=== PATIENT | female | born 1980 | race Caucasian/White ===

== ENCOUNTER 2017-12-06 21:08 | Emergency (ER) | payer OTHER ==
[2017-12-06 22:27] LABS: Appearance CLEAR (CLEAR); Bilirubin NEGATIVE (NEGATIVE); Blood NEGATIVE Ery/ul (0-5); Glucose NEGATIVE (NEGATIVE); Ketones NEGATIVE (NEGATIVE); Leukocyte Esterase NEGATIVE (NEGATIVE); Nitrite NEGATIVE (NEGATIVE); Protein,Urine Dip NEGATIVE (Negative); Specific Gravity 1.005 (1.005-1.025); Urobilinogen NORMAL mg/dL (0-1)
--- NOTE | 2017-12-06 22:36 | ERPHSYRPT ---
- History of Present Illness Time Seen by Provider: 12/06/17 22:18 Source: patient Exam Limitations: no limitations Patient Subjective Stated Complaint: Pt arrives to ER with c/o dizziness came on all of a sudden woke up with it this morning. Gait is unsteady. Nausea started a couple hours ago. Pt denies vomiting, diarrhea, constipation, fever or any other sx. Pt had benign brain tumor at 20 that was partially removed in 2001 and diagnosed with its return August of last year. Pt believes sx today are related to return of brain tumor. Denies headache but states "head feels funny". Triage Nursing Assessment: see above Physician History: The patient is a 36-year-old female with her complaining of a sudden onset of "dizziness" this morning when she got up from bed. She feels unsteady on her feet. She states this is exactly how she has felt when she had her brain tumor when she was 20 years old. She had a partial resection of it in 2001 and was diagnosed in [facility] that the tumor had grown. She states it feels like she has a dizziness in her brain. She's been slightly nauseated today but no vomiting. She denies fever or chills. 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 Timing/Duration: today, constant, sudden Severity: mild Associated Symptoms: nausea, No vomiting Allergies/Adverse Reactions: codeine Adverse Reaction (Mild, Verified 12/06/17 21:51) Vomiting Home Medications: Multivitamin [Multivitamins] 1 each PO 12/06/17 [History] - Review of Systems Constitutional: No Fever, No Chills Eyes: No Symptoms Ears, Nose, & Throat: No Symptoms Respiratory: No Cough, No Dyspnea Cardiac: No Chest Pain, No Edema, No Syncope Abdominal/Gastrointestinal: Nausea Genitourinary Symptoms: No Dysuria Musculoskeletal: No Back Pain, No Neck Pain Skin: No Rash Neurological: Dizziness, No Focal Weakness, No Sensory Changes Psychological: No Symptoms Endocrine: No Symptoms Hematologic/Lymphatic: No Symptoms Immunological/Allergic: No Symptoms All Other Systems: Reviewed and Negative - Past Medical History Pertinent Past Medical History: Yes Other Medical History: Pylocytic Astrocytoma (brain tumor), PVC's - Past Surgical History Past Surgical History: Yes Gastrointestinal: Appendectomy Female Surgical History: Section, Tubal Ligation, Breast Implant Other Surgical History: Brain Tumor Partial Removal - Social History Smoking Status: Never smoker Exposure to second hand smoke: No Drug Use: none Patient Lives Alone: No - Female History Hx Now: No - Nursing Vital Signs Nursing Vital Signs: Initial Vital Signs Temperature 98.4 F 12/06/17 21:37 Pulse Rate 98 H 12/06/17 21:37 Respiratory Rate 18 12/06/17 21:37 Blood Pressure 118/85 12/06/17 21:37 O2 Sat by Pulse Oximetry 100 12/06/17 21:37 Pain Scale Pain Intensity 0 - Physical Exam General Appearance: no apparent distress, alert Eye Exam: PERRL/EOMI, eyes nml inspection Ears, Nose, Throat Exam: normal ENT inspection, TMs normal, pharynx normal, moist mucous membranes Neck Exam: normal inspection, non-tender, supple, full range of motion Respiratory Exam: normal breath sounds, lungs clear, No respiratory distress Cardiovascular Exam: regular rate/rhythm, normal heart sounds, normal peripheral pulses Gastrointestinal/Abdomen Exam: soft, normal bowel sounds, No tenderness, No mass Pelvic Exam: not done Rectal Exam: not done Back Exam: normal inspection, normal range of motion, No CVA tenderness, No vertebral tenderness Extremity Exam: normal inspection, normal range of motion, pelvis stable Neurologic Exam: alert, oriented x 3, cooperative, normal mood/affect, nml cerebellar function, nml station & gait, sensation nml, No motor deficits Skin Exam: normal color, warm, dry, No rash Lymphatic Exam: No adenopathy SpO2 Interpretation: normal SpO2: 100 Ordered Tests: Active Orders 24 hr Category Date Time Status Clean Catch Urine Specimen STAT Care 12/06/17 22:13 Active IV Insertion STAT Care 12/06/17 22:40 Active HEAD WITHOUT CONTRAST [CT] Stat Exams 12/06/17 22:40 Ordered BMP Stat Lab 12/06/17 23:06 Completed CBC W DIFF Stat Lab 12/06/17 23:06 Completed HCG,QUALITATIVE URINE Stat Lab 12/06/17 22:00 Completed UA W/RFX UR CULTURE Stat Lab 12/06/17 22:00 Completed Urine Triage Profile Stat Lab 12/06/17 23:11 Completed Medication Summary Discontinued Medications Generic Name Dose Route Start Last Admin Trade Name Freq PRN Reason Stop Dose Admin Sodium Chloride 1,000 mls @ 999 mls/hr 12/06/17 22:40 12/06/17 23:10 Sodium Chloride 0.9% 1000 Ml IV 12/06/17 23:40 999 mls/hr .Q1H1M STA Administration Sodium Chloride Confirm 12/06/17 22:48 Sodium Chloride 0.9% 1000 Ml Administered 12/06/17 22:49 Dose 1,000 mls @ ud .ROUTE .STK-MED ONE Meclizine HCl 25 mg 12/06/17 22:42 12/06/17 23:10 Antivert 25 Mg PO 12/06/17 22:43 25 mg STAT ONE Administration Meclizine HCl Confirm 12/06/17 22:48 Antivert 25 Mg Administered 12/06/17 22:49 Dose 25 mg .ROUTE .STK-MED ONE Ondansetron HCl 4 mg 12/06/17 22:40 12/06/17 23:10 Zofran 4 Mg/2 Ml Vial IV 12/06/17 22:41 4 mg STAT ONE Administration Ondansetron HCl Confirm 12/06/17 22:48 Zofran 4 Mg/2 Ml Vial Administered 12/06/17 22:49 Dose 4 mg .ROUTE .STK-MED ONE Lab/Rad Data: Laboratory Result Diagrams 12/06/17 23:06 12/06/17 23:06 Laboratory Results 12/06/17 12/06/17 12/06/17 Range/Units 23:11 23:06 23:06 WBC 11.8 H (4.0-10.5) K/mm3 RBC 4.40 (4.1-5.4) M/mm3 Hgb 14.4 (12.0-16.0) gm/dl Hct 41.8 (35-47) % MCV 95.0 (78-100) fl MCH 32.7 H (26-32) pg MCHC 34.4 (32-36) g/dl RDW 12.0 (11.5-14.0) % Plt Count 284 (150-450) K/mm3 MPV 10.0 H (6-9.5) fl Gran % 78.4 H (36.0-66.0) % Eos # (Auto) 0.05 (0-0.5) Absolute Lymphs (auto) 1.82 (1.0-4.6) Absolute Monos (auto) 0.65 (0.0-1.3) Lymphocytes % 15.5 L (24.0-44.0) % Monocytes % 5.5 (0.0-12.0) % Eosinophils % 0.4 (0.00-5.0) % Basophils % 0.2 (0.0-0.4) % Absolute Granulocytes 9.23 H (1.4-6.9) Basophils # 0.02 (0-0.4) Sodium 143 (137-145) mmol/L Potassium 4.0 (3.5-5.1) mmol/L Chloride 106 (98-107) mmol/L Carbon Dioxide 27 (22-30) mmol/L Anion Gap 14.2 (5-15) MEQ/L BUN 9 (7-17) mg/dL Creatinine 0.63 (0.52-1.04) mg/dL Estimated GFR > 60.0 ML/MIN Glucose 98 (74-106) mg/dL Calcium 9.6 (8.4-10.2) mg/dL Ur Collection Type Urine Color (YELLOW) Urine Appearance (CLEAR) Urine pH (5-6) Ur Specific [place] (1.005-1.025) Urine Protein (Negative) Urine Ketones (NEGATIVE) Urine Blood (0-5) Jesse/ul Urine Nitrite (NEGATIVE) Urine Bilirubin (NEGATIVE) Urine Urobilinogen (0-1) mg/dL Ur Leukocyte Esterase (NEGATIVE) Urine Culture Reflexed (NO) Urine Glucose (NEGATIVE) mg/dL Urine HCG, Qual (Negative) Urine Opiates Level NEGATIVE (NEGATIVE) Ur Methadone NEGATIVE (NEGATIVE) Urine Barbiturates NEGATIVE (NEGATIVE) Ur Phencyclidine (PCP) NEGATIVE (NEGATIVE) Urine Amphetamine NEGATIVE (NEGATIVE) U Benzodiazepine Level NEGATIVE (NEGATIVE) Urine Cocaine NEGATIVE (NEGATIVE) Urine Marijuana (THC) NEGATIVE (NEGATIVE) Specimen Received 12/06/17 12/06/17 Range/Units 22:00 22:00 WBC (4.0-10.5) K/mm3 RBC (4.1-5.4) M/mm3 Hgb (12.0-16.0) gm/dl Hct (35-47) % MCV (78-100) fl MCH (26-32) pg MCHC (32-36) g/dl RDW (11.5-14.0) % Plt Count (150-450) K/mm3 MPV (6-9.5) fl Gran % (36.0-66.0) % Eos # (Auto) (0-0.5) Absolute Lymphs (auto) (1.0-4.6) Absolute Monos (auto) (0.0-1.3) Lymphocytes % (24.0-44.0) % Monocytes % (0.0-12.0) % Eosinophils % (0.00-5.0) % Basophils % (0.0-0.4) % Absolute Granulocytes (1.4-6.9) Basophils # (0-0.4) Sodium (137-145) mmol/L Potassium (3.5-5.1) mmol/L Chloride (98-107) mmol/L Carbon Dioxide (22-30) mmol/L Anion Gap (5-15) MEQ/L BUN (7-17) mg/dL Creatinine (0.52-1.04) mg/dL Estimated GFR ML/MIN Glucose (74-106) mg/dL Calcium (8.4-10.2) mg/dL Ur Collection Type CLEAN CATCH Urine Color YELLOW (YELLOW) Urine Appearance CLEAR (CLEAR) Urine pH 9.0 (5-6) Ur Specific [place] 1.005 (1.005-1.025) Urine Protein NEGATIVE (Negative) Urine Ketones NEGATIVE (NEGATIVE) Urine Blood NEGATIVE (0-5) Jesse/ul Urine Nitrite NEGATIVE (NEGATIVE) Urine Bilirubin NEGATIVE (NEGATIVE) Urine Urobilinogen NORMAL (0-1) mg/dL Ur Leukocyte Esterase NEGATIVE (NEGATIVE) Urine Culture Reflexed NO (NO) Urine Glucose NEGATIVE (NEGATIVE) mg/dL Urine HCG, Qual NEGATIVE (Negative) Urine Opiates Level (NEGATIVE) Ur Methadone (NEGATIVE) Urine Barbiturates (NEGATIVE) Ur Phencyclidine (PCP) (NEGATIVE) Urine Amphetamine (NEGATIVE) U Benzodiazepine Level (NEGATIVE) Urine Cocaine (NEGATIVE) Urine Marijuana (THC) (NEGATIVE) Specimen Received 12/06/172209 - Progress Progress Note: 12/07/17 00:[address] to evaluate her "brain tumor".She states only an MRI will work. Pt to leave AMA. Counseled pt/family regarding: rad results - Departure Time of Disposition: 00:10 Departure Disposition: AMA Clinical Impression: Dizziness Condition: Stable Critical Care Time: No
[2017-12-06] MEDS ORDERED: Sodium Chloride 0.9% 1000 ML 1,000 ML ONE (22:48)
[2017-12-06] MEDS ORDERED: Zofran 4 MG/2 ML VIAL ONE (22:48)
[2017-12-06] MEDS ORDERED: ANTIVERT 25 MG ONE (22:48)
[2017-12-06 23:08] LABS: BASOPHIL % 0.2 % (0.0-0.4); Basophil (Absolute #) 0.02 (0-0.4); Eosinophil % 0.4 % (0.00-5.0); Eosinophil (Absolute #) 0.05 (0-0.5); Granulocyte Absolute (ANC) 9.23 (1.4-6.9); Granulocytes % 78.4 % (36.0-66.0); Hematocrit 41.8 % (35-47); Hemoglobin 14.4 gm/dl (12.0-16.0); Lymphocyte (Absolute #) 1.82 (1.0-4.6); Lymphocytes % 15.5 % (24.0-44.0); Mean Corpuscular Hemoglobin 32.7 pg (26-32); Mean Corpuscular Hgb Concent. 34.4 g/dl (32-36); Monocyte (Absolute #) 0.65 (0.0-1.3); Monocytes % 5.5 % (0.0-12.0); Platelet Count 284 K/mm3 (150-450); White Blood Count 11.8 K/mm3 (4.0-10.5)
[2017-12-06] MEDS: Zofran 4 MG/2 ML VIAL IV ONE (23:10)
[2017-12-06] MEDS: ANTIVERT 25 MG PO ONE (23:10)
[2017-12-06] MEDS: Sodium Chloride 0.9% 1000 ML 1,000 ML IV STA (23:10)
[2017-12-06 23:31] LABS: ANION GAP 14.2 MEQ/L (5-15); BLOOD UREA NITROGEN 9 mg/dL (7-17); CHLORIDE 106 mmol/L (98-107); Calcium 9.6 mg/dL (8.4-10.2); Carbon Dioxide 27 mmol/L (22-30); Creatinine 1 0.63 mg/dL (0.52-1.04); Glucose 98 mg/dL (74-106); SODIUM 143 mmol/L (137-145)
[2017-12-06 23:34] LABS: Amphetamine,Urine NEGATIVE (NEGATIVE); Barbiturate,Urine NEGATIVE (NEGATIVE); Benzodiazepine,Urine NEGATIVE (NEGATIVE); Cocaine,Urine NEGATIVE (NEGATIVE); Methadone,Urine NEGATIVE (NEGATIVE); Opiate,Urine NEGATIVE (NEGATIVE); PCP,Urine NEGATIVE (NEGATIVE); THC,Urine NEGATIVE (NEGATIVE)
[2017-12-06 23:39] VITALS: BP 107/68; PULSE 79
[2017-12-07 00:11] VITALS: O2SAT 100
== END 2017-12-07 00:15 | disposition left against medical advice (07) ==
LOC: ED 21:08
DX: R42 Dizziness and giddiness (principal); Z86.69 Personal history of other diseases of the nervous system and sense organs
CPT/HCPCS: 36000; 36415; 80048; 80307; 81002; 84703; 85025; 96360; 96374; 99284; J2405; A9270-GY

== ENCOUNTER 2018-03-09 11:07 | Emergency (ER) | payer OTHER ==
[2018-03-09] MEDS ORDERED: Phenergan 25 MG INJ IV ONE (11:31)
[2018-03-09] MEDS ORDERED: Sodium Chloride 0.9% 1000 ML 1,000 ML IV STA (11:31)
--- NOTE | 2018-03-09 11:38 | ERPHSYRPT ---
- History of Present Illness Time Seen by Provider: 03/09/18 11:25 Historian: patient Exam Limitations: no limitations Patient Subjective Stated Complaint: severe pain in the uterine area, no appendix and has had a tubal Triage Nursing Assessment: Pt stated that she began her period on Tuesday and it has been off and on since then, 2nd period this month, severe pain in the uterine area, rates pain a 9/10, pain with palpation in the pubic region, vitals wnl, denies any other issues Physician History: 37-year-old white female arrives with complaint of pain in her low suprapubic region described as sharp severe symptoms off and on for 2 days constant since last night, Patient states she did have a second period which started 2 days ago, She denies any blood in her urine, She denies any nausea no vomiting, Past medical history includes pylocystic astrocytoma (brain tumor), PVCs. Past medical history includes appendectomy, , tubal ligation, breast implants, brain tumor, partial removal. Social history denies tobacco alcohol or illicit drug use Timing/Duration: yesterday Activities at Onset: none Quality: sharpness Abdominal Pain Onset Location: suprapubic Pain Radiation: no radiation Severity of Pain-Max: moderate Severity of Pain-Current: moderate Modifying Factors: Improves With: nothing Associated Symptoms: other (vaginal bleeding), No back, No chest pain, No diaphoresis, No diarrhea, No fever/chills, No fatigue, No headache, No heartburn , No loss of appetite, No nausea, No neck pain, No rash, No shortness of breath , No syncope, No vomiting, No weakness Allergies/Adverse Reactions: codeine Adverse Reaction (Mild, Verified 03/09/18 11:24) Vomiting Home Medications: Multivitamin [Multivitamins] 1 each PO DAILY 12/06/17 [History] - Review of Systems Constitutional: No Fever, No Chills Eyes: No Symptoms Ears, Nose, & Throat: No Symptoms Respiratory: No Cough, No Dyspnea Cardiac: No Chest Pain, No Edema, No Syncope Abdominal/Gastrointestinal: Abdominal Pain, No Nausea, No Vomiting, No Diarrhea , No Constipation, No Hematemesis, No Hematochezia, No Melena, No Dysphagia, No Appetite Changes Genitourinary Symptoms: Vaginal Bleeding, No Dysuria, No Frequency, No Hematuria , No Hesitancy, No Incontinence, No Urgency, No Urinary Retention, No Flank Pain , No Menorrhagia, No , No Vaginal Discharge, No Vaginal Itching Musculoskeletal: No Back Pain, No Neck Pain Skin: No Symptoms, No Rash Neurological: No Dizziness, No Focal Weakness, No Sensory Changes Psychological: No Symptoms Endocrine: No Symptoms All Other Systems: Reviewed and Negative - Past Medical History Pertinent Past Medical History: Yes Other Medical History: Pylocytic Astrocytoma (brain tumor), PVC's - Past Surgical History Past Surgical History: Yes Gastrointestinal: Appendectomy Female Surgical History: Section, Tubal Ligation, Breast Implant Other Surgical History: Brain Tumor Partial Removal - Social History Smoking Status: Never smoker Exposure to second hand smoke: No Drug Use: none Patient Lives Alone: No - Female History Hx Last Menstrual Period: now Hx Now: No - Nursing Vital Signs Nursing Vital Signs: Initial Vital Signs Temperature 98.8 F 03/09/18 11:10 Pulse Rate 87 03/09/18 11:10 Blood Pressure 110/80 03/09/18 11:10 O2 Sat by Pulse Oximetry 100 03/09/18 11:10 Pain Scale Pain Intensity 3 - Physical Exam General Appearance: mild distress Eye Exam: PERRL/EOMI, eyes nml inspection Ears, Nose, Throat Exam: normal ENT inspection, pharynx normal, moist mucous membranes Neck Exam: normal inspection, non-tender, supple, full range of motion Respiratory Exam: normal breath sounds, lungs clear, No respiratory distress Cardiovascular Exam: regular rate/rhythm, normal heart sounds Gastrointestinal/Abdomen Exam: soft, No tenderness, No mass Back Exam: normal inspection, normal range of motion, No CVA tenderness, No vertebral tenderness Extremity Exam: normal inspection, normal range of motion, pelvis stable Neurologic Exam: alert, oriented x 3, cooperative, ticket clerk II-XII nml as tested, normal mood/affect, nml cerebellar function, sensation nml, No motor deficits Skin Exam: normal color, warm, dry SpO2 Interpretation: normal (100%) SpO2: 100 Oxygen Delivery: Room Air - Course Nursing assessment & vital signs reviewed: Yes - CT Exams Abdomen/Pelvis CT Interpretation: Discussed w/radiologist (CT abdomen and pelvis: Impression: 1. Bilateral L5 spondylolysis without spondylolisthesis. 2. Remaining CT abdomen/ pelvis with contrast negative.) Ordered Tests: Active Orders 24 hr Category Date Time Status IV Insertion STAT Care 03/09/18 11:31 Active ABDOMEN AND PELVIS W CONTRAST [CT] Stat Exams 03/09/18 13:06 Completed AMYLASE Stat Lab 03/09/18 11:20 Completed CBC W DIFF Stat Lab 03/09/18 11:20 Completed CMP Stat Lab 03/09/18 11:20 Completed HCG QUALITATIVE,SERUM Stat Lab 03/09/18 11:20 Completed LIPASE Stat Lab 03/09/18 11:20 Completed UA W/RFX UR CULTURE Stat Lab 03/09/18 11:20 Completed Urine Triage Profile Stat Lab 03/09/18 11:20 Completed Medication Summary Discontinued Medications Generic Name Dose Route Start Last Admin Trade Name Rigobertoq PRN Reason Stop Dose Admin Sodium Chloride 1,000 mls @ 999 mls/hr 03/09/18 11:31 03/09/18 13:17 Sodium Chloride 0.9% 1000 Ml IV 03/09/18 12:31 Infused .Q1H1M STA Infusion Sodium Chloride Confirm 03/09/18 11:47 Sodium Chloride 0.9% 1000 Ml Administered 03/09/18 11:48 Dose 1,000 mls @ ud .ROUTE .STK-MED ONE Ketorolac Tromethamine 30 mg 03/09/18 13:06 03/09/18 13:10 Toradol 30 Mg Injection IV 03/09/18 13:07 30 mg STAT ONE Administration Ketorolac Tromethamine Confirm 03/09/18 13:09 Toradol 30 Mg Injection Administered 03/09/18 13:10 Dose 30 mg .ROUTE .STK-MED ONE Promethazine HCl 12.5 mg 03/09/18 11:31 03/09/18 11:51 Phenergan 25 Mg Inj IV 03/09/18 11:32 12.5 mg STAT ONE Administration Promethazine HCl Confirm 03/09/18 11:47 Phenergan 25 Mg Inj Administered 03/09/18 11:48 Dose 25 mg .ROUTE .STK-MED ONE Lab/Rad Data: Laboratory Result Diagrams 03/09/18 11:20 03/09/18 11:20 Laboratory Results 03/09/18 03/09/18 03/09/18 Range/Units 11:20 11:20 11:20 WBC (4.0-10.5) K/mm3 RBC (4.1-5.4) M/mm3 Hgb (12.0-16.0) gm/dl Hct (35-47) % MCV (78-100) fl MCH (26-32) pg MCHC (32-36) g/dl RDW (11.5-14.0) % Plt Count (150-450) K/mm3 MPV (6-9.5) fl Gran % (36.0-66.0) % Eos # (Auto) (0-0.5) Absolute Lymphs (auto) (1.0-4.6) Absolute Monos (auto) (0.0-1.3) Lymphocytes % (24.0-44.0) % Monocytes % (0.0-12.0) % Eosinophils % (0.00-5.0) % Basophils % (0.0-0.4) % Absolute Granulocytes (1.4-6.9) Basophils # (0-0.4) Sodium (137-145) mmol/L Potassium (3.5-5.1) mmol/L Chloride (98-107) mmol/L Carbon Dioxide (22-30) mmol/L Anion Gap (5-15) MEQ/L BUN (7-17) mg/dL Creatinine (0.52-1.04) mg/dL Estimated GFR ML/MIN Glucose (74-106) mg/dL Calcium (8.4-10.2) mg/dL Total Bilirubin (0.2-1.3) mg/dL AST (14-36) U/L ALT (0-35) U/L Alkaline Phosphatase (38-126) U/L Serum Total Protein (6.3-8.2) g/dL Albumin (3.5-5.0) g/dL Amylase (30-110) U/L Lipase (23-300) U/L Serum , Qual NEGATIVE (Negative) Urine Color YELLOW (YELLOW) Urine Appearance SLIGHTLY CLOUDY (CLEAR) Urine pH 5.0 (5-6) Ur Specific [place] 1.024 (1.005-1.025) Urine Protein NEGATIVE (Negative) Urine Ketones NEGATIVE (NEGATIVE) Urine Blood NEGATIVE (0-5) Jesse/ul Urine Nitrite NEGATIVE (NEGATIVE) Urine Bilirubin NEGATIVE (NEGATIVE) Urine Urobilinogen NEGATIVE (0-1) mg/dL Ur Leukocyte Esterase NEGATIVE (NEGATIVE) Urine WBC (Auto) 0-2 (0-5) /HPF Urine RBC (Auto) NONE (0-2) /HPF U Epithel Cells (Auto) NONE (FEW) /HPF Urine Bacteria (Auto) RARE (NEGATIVE) /HPF Urine Mucus (Auto) MANY (NEGATIVE) /HPF Urine Culture Reflexed NO (NO) Urine Glucose NEGATIVE (NEGATIVE) mg/dL Urine Opiates Level NEGATIVE (NEGATIVE) Ur Methadone NEGATIVE (NEGATIVE) Urine Barbiturates NEGATIVE (NEGATIVE) Ur Phencyclidine (PCP) NEGATIVE (NEGATIVE) Urine Amphetamine NEGATIVE (NEGATIVE) U Benzodiazepine Level NEGATIVE (NEGATIVE) Urine Cocaine NEGATIVE (NEGATIVE) Urine Marijuana (THC) NEGATIVE (NEGATIVE) 03/09/18 03/09/18 Range/Units 11:20 11:20 WBC 8.0 (4.0-10.5) K/mm3 RBC 4.27 (4.1-5.4) M/mm3 Hgb 14.0 (12.0-16.0) gm/dl Hct 41.8 (35-47) % MCV 97.9 (78-100) fl MCH 32.8 H (26-32) pg MCHC 33.5 (32-36) g/dl RDW 12.3 (11.5-14.0) % Plt Count 284 (150-450) K/mm3 MPV 10.5 H (6-9.5) fl Gran % 66.3 H (36.0-66.0) % Eos # (Auto) 0.11 (0-0.5) Absolute Lymphs (auto) 2.14 (1.0-4.6) Absolute Monos (auto) 0.43 (0.0-1.3) Lymphocytes % 26.8 (24.0-44.0) % Monocytes % 5.4 (0.0-12.0) % Eosinophils % 1.4 (0.00-5.0) % Basophils % 0.1 (0.0-0.4) % Absolute Granulocytes 5.29 (1.4-6.9) Basophils # 0.01 (0-0.4) Sodium 140 (137-145) mmol/L Potassium 3.8 (3.5-5.1) mmol/L Chloride 108 H (98-107) mmol/L Carbon Dioxide 25 (22-30) mmol/L Anion Gap 11.3 (5-15) MEQ/L BUN 11 (7-17) mg/dL Creatinine 0.65 (0.52-1.04) mg/dL Estimated GFR > 60.0 ML/MIN Glucose 128 H (74-106) mg/dL Calcium 9.5 (8.4-10.2) mg/dL Total Bilirubin 0.60 (0.2-1.3) mg/dL AST 18 (14-36) U/L ALT 15 (0-35) U/L Alkaline Phosphatase 58 (38-126) U/L Serum Total Protein 7.4 (6.3-8.2) g/dL Albumin 4.5 (3.5-5.0) g/dL Amylase 63 (30-110) U/L Lipase 38 (23-300) U/L Serum , Qual (Negative) Urine Color (YELLOW) Urine Appearance (CLEAR) Urine pH (5-6) Ur Specific [place] (1.005-1.025) Urine Protein (Negative) Urine Ketones (NEGATIVE) Urine Blood (0-5) Jesse/ul Urine Nitrite (NEGATIVE) Urine Bilirubin (NEGATIVE) Urine Urobilinogen (0-1) mg/dL Ur Leukocyte Esterase (NEGATIVE) Urine WBC (Auto) (0-5) /HPF Urine RBC (Auto) (0-2) /HPF U Epithel Cells (Auto) (FEW) /HPF Urine Bacteria (Auto) (NEGATIVE) /HPF Urine Mucus (Auto) (NEGATIVE) /HPF Urine Culture Reflexed (NO) Urine Glucose (NEGATIVE) mg/dL Urine Opiates Level (NEGATIVE) Ur Methadone (NEGATIVE) Urine Barbiturates (NEGATIVE) Ur Phencyclidine (PCP) (NEGATIVE) Urine Amphetamine (NEGATIVE) U Benzodiazepine Level (NEGATIVE) Urine Cocaine (NEGATIVE) Urine Marijuana (THC) (NEGATIVE) - Progress Progress: improved Progress Note: 03/09/18 12:48 Patient apparently passed a large clot now bleeding has slowed she has no abdominal pain at this time. Patient's CBC CMP hCG UA amylase lipase are all normal. GC Chlamydia (urine) are pending. 03/09/18 13:08 Patient with mild amount of blood in the vagina on pelvic exam. Uterus is tender. Labs are essentially normal. Will obtain CT of the abdomen. Secondary continuing tenderness in the lower abdomen. Toradol 30 mg IV has been ordered 03/09/18 14:08 CT abdomen and pelvis remarkable for bilateral L5 spondylolysis without spondylolisthesis. Remaining CT abdomen and pelvis with contrast examination is negative. Patient appears to be stable feeling better after Toradol. Will discharge. 03/09/18 14:10 Patient states she cannot take narcotics and does not want to take narcotics for pain. I've offered the patient a prescription of Naprosyn. She states she will take Advil at home. - Departure Time of Disposition: 14:08 Departure Disposition: Home Clinical Impression: Crampy pain associated with menses, vaginal bleeding due to menstruation Condition: Fair Critical Care Time: No Referrals: LÓPEZ ZELAYA [Primary Care Provider] - Instructions: Acute Abdomen (Belly Pain) Additional Instructions: Return home. Advil 3 tablets orally every 6 hours as needed for pain up to 5 days. Plenty of fluids. Follow-up with your family doctor. Return for acute distress or for severe symptoms.
[2018-03-09] MEDS ORDERED: Phenergan 25 MG INJ ONE (11:47)
[2018-03-09] MEDS ORDERED: Sodium Chloride 0.9% 1000 ML 1,000 ML ONE (11:47)
[2018-03-09 12:03] LABS: Appearance SLIGHTLY CLOUDY (CLEAR); BASOPHIL % 0.1 % (0.0-0.4); Basophil (Absolute #) 0.01 (0-0.4); Bilirubin NEGATIVE (NEGATIVE); Blood NEGATIVE Ery/ul (0-5); Eosinophil % 1.4 % (0.00-5.0); Eosinophil (Absolute #) 0.11 (0-0.5); Glucose NEGATIVE (NEGATIVE); Granulocyte Absolute (ANC) 5.29 (1.4-6.9); Granulocytes % 66.3 % (36.0-66.0); Hematocrit 41.8 % (35-47); Ketones NEGATIVE (NEGATIVE); Leukocyte Esterase NEGATIVE (NEGATIVE); Lymphocyte (Absolute #) 2.14 (1.0-4.6); Lymphocytes % 26.8 % (24.0-44.0); Mean Cell Volume 97.9 fl (78-100); Mean Corpuscular Hemoglobin 32.8 pg (26-32); Mean Corpuscular Hgb Concent. 33.5 g/dl (32-36); Mean Platelet Volume 10.5 fl (6-9.5); Monocyte (Absolute #) 0.43 (0.0-1.3); Monocytes % 5.4 % (0.0-12.0); Nitrite NEGATIVE (NEGATIVE); Platelet Count 284 K/mm3 (150-450); Protein,Urine Dip NEGATIVE (Negative); Red Blood Count 4.27 M/mm3 (4.1-5.4); Red Cell Distribution Width 12.3 % (11.5-14.0); Specific Gravity 1.024 (1.005-1.025); Urobilinogen NEGATIVE mg/dL (0-1)
[2018-03-09 12:06] LABS: ALBUMIN 4.5 g/dL (3.5-5.0); ALKALINE PHOSPHATASE 58 U/L (38-126); AMYLASE 63 U/L (30-110); ANION GAP 11.3 MEQ/L (5-15); BLOOD UREA NITROGEN 11 mg/dL (7-17); CHLORIDE 108 mmol/L (98-107); Calcium 9.5 mg/dL (8.4-10.2); Carbon Dioxide 25 mmol/L (22-30); Creatinine 1 0.65 mg/dL (0.52-1.04); Glucose 128 mg/dL (74-106); LIPASE 38 U/L (23-300); Potassium 3.8 mmol/L (3.5-5.1); SGOT/AST 18 U/L (14-36); SGPT/ALT 15 U/L (0-35); SODIUM 140 mmol/L (137-145); Total Protein 7.4 g/dL (6.3-8.2)
[2018-03-09 12:16] LABS: Amphetamine,Urine NEGATIVE (NEGATIVE); Barbiturate,Urine NEGATIVE (NEGATIVE); Benzodiazepine,Urine NEGATIVE (NEGATIVE); Cocaine,Urine NEGATIVE (NEGATIVE); Methadone,Urine NEGATIVE (NEGATIVE); PCP,Urine NEGATIVE (NEGATIVE); THC,Urine NEGATIVE (NEGATIVE)
[2018-03-09 12:28] LABS: Opiate,Urine NEGATIVE (NEGATIVE)
[2018-03-09] MEDS ORDERED: TORAdol 30 mg Injection IV ONE (13:06)
[2018-03-09] MEDS ORDERED: TORAdol 30 mg Injection ONE (13:09)
--- NOTE | 2018-03-09 13:55 | XRAY ---
Indication: Uterus pain. Multiple contiguous axial images obtained through the abdomen and pelvis using 80 cc Isovue 370 contrast only. Comparison: None Lung bases are clear. Heart is not enlarged. Partially visualized bilateral breast implants. Noncontrasted stomach and bowel loops appear nonobstructed. Previous appendectomy. No free fluid/air. Remaining liver, gallbladder, pancreas, spleen, adrenal glands, kidneys, ureters, bladder, uterus, and aorta appear unremarkable. No pathologic retroperitoneal lymphadenopathy. Osseous structures intact. Incidental bilateral L5 spondylolysis without spondylolisthesis. No ventral or inguinal hernias. Impression: 1. Bilateral L5 spondylolysis without spondylolisthesis. 2. Remaining CT abdomen/pelvis with contrast exam is negative. Comment: Pelvic sonogram may yield further information if there remains further clinical concern. CT DI 11.27
[2018-03-09 13:59] VITALS: BP 103/58; PULSE 84
[2018-03-09 14:11] VITALS: O2SAT 100
== END 2018-03-09 14:21 | disposition home or self-care (01) ==
LOC: ED 11:07
DX: R10.9 Unspecified abdominal pain (principal); N94.6 Dysmenorrhea, unspecified
CPT/HCPCS: 36000; 36415; 74177; 80053; 80307; 81001; 81025; 82150; 83690; 85025; 96360; 96374; 96375; 99284; J1885; J2550

== ENCOUNTER 2018-10-12 14:04 | Emergency (ER) | payer OTHER ==
--- NOTE | 2018-10-12 14:08 | ERPHSYRPT ---
- History of Present Illness Time Seen by Provider: 10/12/18 14:07 Source: patient, family Physician History: 37 y/o white female presents with sudden onset of left suprapubic pain with numbness sensation left lateral hip.. 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 pt is on her 3rd day of her menstrual period. similar episode 9 months ago. dx ovarian cysts, seen by whirley operator, but did not continue tx because of med side effects. pt has had a btl in past. Timing/Duration: today Severity: mild Character of Deficits: other (numbness left lateral hip) Baseline/Normal Cognition: alert oriented x 3 Current Cognition: alert oriented x 3 Baseline Gait: walks w/o assistance Associated Symptoms: numbness/tingling in legs/feet Allergies/Adverse Reactions: adhesive Allergy (Verified 10/12/18 14:25) codeine Adverse Reaction (Mild, Verified 10/12/18 14:25) Vomiting Home Medications: Multivitamin [Multivitamins] 1 each PO DAILY 12/06/17 [History] - Review of Systems Constitutional: No Symptoms Eyes: No Symptoms Ears, Nose, & Throat: No Symptoms Respiratory: No Symptoms Cardiac: No Symptoms Abdominal/Gastrointestinal: Abdominal Pain (left suprapubic) Genitourinary Symptoms: Vaginal Bleeding (pt on 3rd day of menstrual period. ) Musculoskeletal: No Symptoms Skin: No Symptoms Psychological: Anxiety Endocrine: No Symptoms Hematologic/Lymphatic: No Symptoms Immunological/Allergic: No Symptoms All Other Systems: Reviewed and Negative - Past Medical History Pertinent Past Medical History: Yes Neurological History: Other (h/o resection of brain tumor. last scan of brain 6 months ago.) ENT History: No Pertinent History Cardiac History: No Pertinent History Respiratory History: No Pertinent History Endocrine Medical History: No Pertinent History Musculoskeletal History: No Pertinent History GI Medical History: No Pertinent History History: No Pertinent History Psycho-Social History: No Pertinent History Female Reproductive Disorders: No Pertinent History Other Medical History: Pylocytic Astrocytoma (brain tumor), PVC's - Past Surgical History Past Surgical History: Yes Gastrointestinal: Appendectomy Female Surgical History: Section, Tubal Ligation, Breast Implant Other Surgical History: Brain Tumor Partial Removal - Social History Smoking Status: Never smoker Exposure to second hand smoke: No Drug Use: none Patient Lives Alone: No - Nursing Vital Signs Nursing Vital Signs: Initial Vital Signs Temperature 98.1 F 10/12/18 14:20 Pulse Rate 62 10/12/18 14:20 Respiratory Rate 18 10/12/18 14:20 Blood Pressure 106/60 10/12/18 14:20 O2 Sat by Pulse Oximetry 100 10/12/18 14:20 Pain Scale Pain Intensity 0 - [place] Coma Scale Best Eye Response ([place]): (4) open spontaneously Best Verbal Response ([place]): (5) oriented Best Motor Response ([place]): (6) obeys commands [place] Total: 15 - Physical Exam General Appearance: no apparent distress, alert, anxiety Eye Exam: bilateral eye: normal inspection, PERRL, EOMI Ears, Nose, Throat Exam: normal ENT inspection, moist mucous membranes Neck Exam: normal inspection, non-tender, supple, full range of motion Respiratory: normal breath sounds, lungs clear, airway intact, No chest tenderness, No respiratory distress Cardiovascular: regular rate/rhythm, normal heart sounds, normal peripheral pulses Gastrointestinal: soft, normal bowel sounds, tenderness (left suprapubic area) Pelvic Exam: not done Rectal Exam: not done Back Exam: normal inspection, normal range of motion, No CVA tenderness, No vertebral tenderness Extremity Exam: normal inspection, normal range of motion, pelvis stable Mental Status: alert, oriented x 3, 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 Exam: normal hearing, normal speech, PERRL Motor/Sensory: no motor deficit, no sensory deficit Skin Exam: normal color, warm, dry SpO2 Interpretation: normal O2 Delivery: Room Air Ordered Tests: Active Orders 24 hr Category Date Time Status ABDOMEN AND PELVIS W/0 CONTRAS [CT] Stat Exams 10/12/18 14:44 Taken CULTURE,URINE Stat Lab 10/12/18 15:25 Received HCG,QUALITATIVE URINE Stat Lab 10/12/18 15:09 Completed UA W/RFX UR CULTURE Stat Lab 10/12/18 15:25 Completed Medication Summary Discontinued Medications Generic Name Dose Route Start Last Admin Trade Name Freq PRN Reason Stop Dose Admin Ibuprofen 600 mg 10/12/18 14:45 10/12/18 14:51 Motrin 600 Mg PO 10/12/18 14:46 600 mg STAT ONE Administration Ibuprofen Confirm 10/12/18 14:50 Motrin 600 Mg Administered 10/12/18 14:51 Dose 600 mg .ROUTE .STK-MED ONE Ondansetron HCl 4 mg 10/12/18 14:46 10/12/18 14:51 Zofran Odt 4 Mg PO 10/12/18 14:47 4 mg STAT ONE Administration Ondansetron HCl Confirm 10/12/18 14:50 Zofran Odt 4 Mg Administered 10/12/18 14:51 Dose 4 mg .ROUTE .STK-MED ONE Lab/Rad Data: Laboratory Results 10/12/18 10/12/18 Range/Units 15:25 15:09 Urine Color RED (YELLOW) Urine Appearance CLOUDY (CLEAR) Urine pH 6.0 (5-6) Ur Specific [place] 1.023 (1.005-1.025) Urine Protein 100 (Negative) Urine Ketones NEGATIVE (NEGATIVE) Urine Blood LARGE (0-5) Jesse/ul Urine Nitrite NEGATIVE (NEGATIVE) Urine Bilirubin NEGATIVE (NEGATIVE) Urine Urobilinogen NEGATIVE (0-1) mg/dL Ur Leukocyte Esterase TRACE (NEGATIVE) Urine WBC (Auto) 0-2 (0-5) /HPF Urine RBC (Auto) >101 (0-2) /HPF U Epithel Cells (Auto) RARE (FEW) /HPF Urine Bacteria (Auto) MODERATE (NEGATIVE) /HPF Unidentified Crystals >100 (NEGATIVE) /HPF Urine Mucus (Auto) MODERATE (NEGATIVE) /HPF Urine Culture Reflexed YES (NO) Urine Glucose 50 (NEGATIVE) mg/dL Urine HCG, Qual NEGATIVE (Negative) - Progress Progress: unchanged Progress Note: 10/12/18 17:23 ct abd/pelvis-bilat ovarian follicles. Counseled pt/family regarding: diagnosis, need for follow-up, rad results - Departure Departure Disposition: Home Clinical Impression: UTI (urinary tract infection), Ovarian follicular cyst Condition: Stable Critical Care Time: No Referrals: LÓPEZ ZELAYA [Primary Care Provider] - Additional Instructions: drink plenty of fluids. follow up with whirley operator or primary doctor for further management. tylenol and ibuprofen for pain. Prescriptions: Cephalexin Mh 500 mg [Keflex 500 mg] 500 mg PO TID #21 capsule
[2018-10-12] MEDS ORDERED: MOTRIN 600 MG PO ONE (14:45)
[2018-10-12] MEDS ORDERED: ZOFRAN ODT 4 MG PO ONE (14:46)
[2018-10-12] MEDS ORDERED: ZOFRAN ODT 4 MG ONE (14:50)
[2018-10-12] MEDS ORDERED: MOTRIN 600 MG ONE (14:50)
[2018-10-12 15:39] LABS: Appearance CLOUDY (CLEAR); Bacteria MODERATE /HPF (NEGATIVE); Bilirubin NEGATIVE (NEGATIVE); Blood LARGE Ery/ul (0-5); Crystals Unidentified >100 /HPF (NEGATIVE); Epithelial Cells RARE /HPF (FEW); Glucose 50 mg/dL (NEGATIVE); Ketones NEGATIVE (NEGATIVE); Leukocyte Esterase TRACE (NEGATIVE); Mucus MODERATE /HPF (NEGATIVE); Nitrite NEGATIVE (NEGATIVE); Protein,Urine Dip 100 (Negative); RBC >101 /HPF (0-2); Specific Gravity 1.023 (1.005-1.025); Urobilinogen NEGATIVE mg/dL (0-1); WBC 0-2 /HPF (0-5)
[2018-10-12 17:08] VITALS: BP 110/70; PULSE 81; O2SAT 97
[2018-10-12] MEDS ORDERED: KEFLEX 500 MG PO ONE (17:28)
[2018-10-12] MEDS ORDERED: KEFLEX 500 MG ONE (17:30)
--- NOTE | 2018-10-13 09:11 | XRAY ---
Indication: Suprapubic pain. Multiple contiguous axial images obtained through the abdomen and pelvis without contrast as ordered. Comparison: March 09, 2018. Lung bases remain clear. Heart is not enlarged. Again partially visualized bilateral breast implants. Noncontrasted stomach and bowel loops appear nonobstructed. Again previous appendectomy. No free fluid/air. Remaining liver, gallbladder, pancreas, spleen, adrenal glands, kidneys, ureters, bladder, uterus, and aorta appear unremarkable for noncontrast exam. Osseous structures intact again with bilateral L5 spondylolysis without spondylolisthesis. No ventral/inguinal hernias. Right perineum again demonstrates 7 mm cyst favoring Bartholin's duct cyst. Impression: 1. Stable L5 spondylolysis without spondylolisthesis and right perineum Bartholin's duct cyst. 2. Remaining CT abdomen/pelvis without contrast exam is negative. Comment: Preliminary interpretation was made by [facility]. No discrepancy. CT DI 11.47
== END 2018-10-12 17:37 | disposition home or self-care (01) ==
LOC: ED 14:04
DX: N39.0 Urinary tract infection, site not specified (principal); N83.00 Follicular cyst of ovary, unspecified side; F41.9 Anxiety disorder, unspecified
CPT/HCPCS: 74176; 81001; 84703; 87086; 99284; Q0162; A9270-GY